=== PATIENT | male | born 1990 | race Caucasian/White ===

== ENCOUNTER 2016-10-14 11:57 | Observation (INO) | payer OTHER ==
[2016-10-14] MEDS ORDERED: ONDANSETRON 4 MG/2 ML VIAL IVP ONE (12:05)
[2016-10-14] MEDS ORDERED: fentaNYL 100 MCG/2 ML INJ IVP ONE (12:06)
--- NOTE | 2016-10-14 12:11 | EDPHY ---
H & P Time Seen by Provider: 10/14/16 12:06 HPI/ROS: CHIEF COMPLAINT: 60 foot fall, loss of consciousness HISTORY OF PRESENT ILLNESS: 26-year-old male presents after a 60 foot fall with loss of consciousness. He was a helmeted climber using a rope when he fell. He tumbled down approximately 45 feed of the rock face and then had a 15 feet free fall. His rope caught him and he did not fall to the ground. On bystander arrival, he was unconscious. On EMT arrival, GCS 14, confused and perseverating. He does not remember what happened and does not really hurt anywhere. He has multiple abrasions, denies headache or neck pain. He is able to move all extremities well. REVIEW OF SYSTEMS: Constitutional: No weakness Eyes: No visual changes or eye pain ENT: No dental trauma Neck:No pain or injury Respiratory: No shortness of breath Cardiac: No chest pain Gastrointestinal: No abdominal pain, no vomiting Back:no back pain Genitourinary: No hematuria Musculoskeletal: No joint pain Skin: No lacerations Neurological: No headache, no dizziness Past Medical/Surgical History: Denies Social History: No recent alcohol Smoking Status: Never smoked Physical Exam: General Appearance: Alert, cooperative and pleasant Head: forehead abrasion, 2 cm left scalp laceration Eyes: No conjunctival erythema, PERRLA, EOMI ENT, Mouth: no oral trauma, no bony tenderness Neck: In cervical spine collar Respiratory: No chest wall tenderness anteriorly, lungs clear bilaterally Cardiovascular: Regular rate and rhythm Abdomen: Abdomen is soft and nontender Back: Multiple abrasions over the entire back, midline tenderness of the thoracic back Skin: multiple abrasions, especially on the left upper and left lower extremities Extremities: Pelvis is stable, left pelvic tenderness; no extremity deformity, pain with left hip range of motion Neurological: alert, oriented to self and date, normal motor function, normal sensory exam, cranial nerves intact Psychiatric: Mood and affect normal Constitutional: Initial Vital Signs Temperature (C) 37.3 C 10/14/16 14:52 Heart Rate 74 10/14/16 14:52 Respiratory Rate 12 10/14/16 14:52 Blood Pressure 106/58 L 10/14/16 14:52 O2 Sat (%) 93 10/14/16 14:52 Allergies/Adverse Reactions: No Known Drug Allergies Allergy (Verified 10/14/16 12:57) Home Medications: Medication Instructions Recorded NK [No Known Home Meds] 10/14/16 Medical Decision Making - Diagnostics Imaging Results: Imaging Impressions Cervical Spine CT 10/14/16 12:06 Impression: Negative noncontrast CT of the head negative for intracranial posttraumatic sequela. CT Cervical Spine Without Contrast History: Trauma. Technique: Multislice helical CT through the cervical spine without contrast from the skull base to T1. Soft tissue and bone evaluation is performed. Sagittal and coronal reconstructions are obtained and reviewed. Dose reduction techniques were utilized. Findings: Cervical alignment is anatomic. There is a compression fracture of C7 anteriorly with approximately 20-30% loss of cephalocaudal height. There is no significant retropulsion or significant canal impingement. There is also a transverse process fracture of C7 on the left and a linear fracture extends into the left vertebral artery foramen. Additionally, there is a fracture involving the C6-C7 facet on the left side and there is an essentially undisplaced laminar fracture through the left posterior lamina of C6. There is mild prevertebral soft tissue swelling. Impression: Compression fracture of T7 with associated transverse process fracture of C7 with a linear component extending into the left vertebral artery foramen. A fracture also is seen involving the left C6-C7 facet articulation and there is a fracture of the posterior lamina of C6 on the left side which is undisplaced. Results called and discussed with Dr. Concepción Wray on 10/14/2016 at [address] 10/14/16 12:06 Impression: Negative noncontrast CT of the head negative for intracranial posttraumatic sequela. CT Cervical Spine Without Contrast History: Trauma. Technique: Multislice helical CT through the cervical spine without contrast from the skull base to T1. Soft tissue and bone evaluation is performed. Sagittal and coronal reconstructions are obtained and reviewed. Dose reduction techniques were utilized. Findings: Cervical alignment is anatomic. There is a compression fracture of C7 anteriorly with approximately 20-30% loss of cephalocaudal height. There is no significant retropulsion or significant canal impingement. There is also a transverse process fracture of C7 on the left and a linear fracture extends into the left vertebral artery foramen. Additionally, there is a fracture involving the C6-C7 facet on the left side and there is an essentially undisplaced laminar fracture through the left posterior lamina of C6. There is mild prevertebral soft tissue swelling. Impression: Compression fracture of T7 with associated transverse process fracture of C7 with a linear component extending into the left vertebral artery foramen. A fracture also is seen involving the left C6-C7 facet articulation and there is a fracture of the posterior lamina of C6 on the left side which is undisplaced. Results called and discussed with Dr. Concepción Wray on 10/14/2016 at [address] 10/14/16 12:07 Impression: 1. Negative for soft tissue posttraumatic change. 2. Pelvic fractures of the left iliac wing, right sacral alar and posterior lip of the right acetabulum CT lumbar Spine Reason for examination: Trauma. Technique: A thinly collimated spiral acquisition was performed through the lumbar spine. Sagittal and coronal reformations are performed and the examination is reviewed by the radiologist on the workstation at multiple window /level settings. Dose reduction techniques were utilized. Findings: The bone alignment is normal. An acute fracture is not seen. The paravertebral soft tissues are normal. Impression: Lumbar spine negative for fracture. Results called and discussed with CONCEPCIÓN WRAY on 10/14/2016 13:[address] 10/14/16 12:07 Impression: Left-sided pulmonary contusion with no associated pneumothorax. CT Thoracic Spine Without Contrast Reason for examination: Trauma. Technique: A thinly collimated spiral acquisition was performed through the thoracic spine. Sagittal and coronal reformations are performed and the examination is reviewed by the radiologist on the workstation at multiple window /level settings. Dose reduction techniques were utilized. Findings: The bone alignment is normal. The vertebral body heights are normal with no thoracic spine vertebral compression fracture identified. Notation is made of the compression fracture of T7. There are avulsion fractures of multiple thoracic spinous processes extending from T3 to T10. Impression: Negative for thoracic spine vertebral body fracture. Avulsion fractures of the spinous processes are seen from T3 to T10. Results called and discussed with CONCEPCIÓN WRAY on 10/14/2016 at 13:[address] 10/14/16 12:07 Impression: 1. Negative for soft tissue posttraumatic change. 2. Pelvic fractures of the left iliac wing, right sacral alar and posterior lip of the right acetabulum CT lumbar Spine Reason for examination: Trauma. Technique: A thinly collimated spiral acquisition was performed through the lumbar spine. Sagittal and coronal reformations are performed and the examination is reviewed by the radiologist on the workstation at multiple window /level settings. Dose reduction techniques were utilized. Findings: The bone alignment is normal. An acute fracture is not seen. The paravertebral soft tissues are normal. Impression: Lumbar spine negative for fracture. Results called and discussed with CONCEPCIÓN WRAY on 10/14/2016 13:[address] 10/14/16 12:07 Impression: Left-sided pulmonary contusion with no associated pneumothorax. CT Thoracic Spine Without Contrast Reason for examination: Trauma. Technique: A thinly collimated spiral acquisition was performed through the thoracic spine. Sagittal and coronal reformations are performed and the examination is reviewed by the radiologist on the workstation at multiple window /level settings. Dose reduction techniques were utilized. Findings: The bone alignment is normal. The vertebral body heights are normal with no thoracic spine vertebral compression fracture identified. Notation is made of the compression fracture of T7. There are avulsion fractures of multiple thoracic spinous processes extending from T3 to T10. Impression: Negative for thoracic spine vertebral body fracture. Avulsion fractures of the spinous processes are seen from T3 to T10. Results called and discussed with CONCEPCIÓN WRAY on 10/14/2016 at 13:11 Procedures: Procedure: Trauma ultrasound. Limited echocardiogram for pericardial effusion. Limited bedside ultrasound was performed and interpreted by myself for the indication of: chest trauma utilizing the thoracoabdominal emergency ultrasound protocol. Limited transthoracic echocardiogram: The pericardium was visualized and found to be negative for pericardial fluid. The study was negative for pericardial effusion. Limited abdominal ultrasound for blunt abdominal trauma. 1) The right upper quadrant was visualized and was found to be negative for intraperitoneal fluid. 2) The left upper quadrant was visualized and found to be negative for intraperitoneal fluid. The study was felt to be negative for free intraperitoneal fluid. Limited pelvic ultrasound was conducted for abdominal trauma. The bladder was visualized and did not reveal an anechoic area outside of the adjacent urinary bladder. Bladder was distended with urine. Procedure: Laceration repair. The 2 cm laceration on the scalp was anesthetized using lidocaine with epinephrine. The wound was irrigated, draped and explored to its base with a gloved finger. There were no deep structures involved. No foreign body palpable. The wound was repaired with maximo. The wound repair was simple. ED Course/Re-evaluation: This patient presented as a full trauma activation. Dr. Simon and Andres were present on the patient's arrival. Airway is intact and breath sounds are equal bilaterally. Initial vital signs or normal, without hypotension or tachycardia. Fast exam by me was normal. Patient was taken to CT scan, accompanied by the ED RN and Dr. Simon. CT scans reveal multiple spinal and pelvic fractures, without evidence of hemorrhage. Serial neuro exams unchanged. 1pm: Dr. Rasheed consulted by me. Dr. Ho consulted by Dr. Simon. 120pm: pt now c/o increasing upper back pain. CT results d/w pt. Porter J cervical collar placed. 150pm: The pt was logrolled for laceration repair. Scalp laceration stapled by me. Repeat neuro exam unchanged. Abdomen is soft and nontender. Differential Diagnosis: Differential diagnosis includes though it is not limited to fracture, intracranial hemorrhage, pneumothorax, hemothorax, intra-abdominal hemorrhage. - Data Points Laboratory Results: Laboratory Results 10/14/16 12:40 10/14/16 12:40 10/14/16 10/14/16 10/14/16 12:40 12:40 12:40 WBC 12.11 10^3/uL H 10^3/uL (3.80-9.50) RBC 4.31 10^6/uL L 10^6/uL (4.40-6.38) Hgb 13.9 g/dL g/dL (13.7-17.5) Hct 39.2 % L % (40.0-51.0) MCV 91.0 fL fL (81.5-99.8) MCH 32.3 pg pg (27.9-34.1) MCHC 35.5 g/dL g/dL (32.4-36.7) RDW 12.7 % % (11.5-15.2) Plt Count 203 10^3/uL 10^3/uL (150-400) MPV 10.6 fL fL (8.7-11.7) Neut % (Auto) 80.1 % H % (39.3-74.2) Lymph % (Auto) 10.9 % L % (15.0-45.0) [place] % (Auto) 7.3 % % (4.5-13.0) Eos % (Auto) 0.3 % L % (0.6-7.6) Baso % (Auto) 0.4 % % (0.3-1.7) Nucleat RBC Rel Count 0.0 % % (0.0-0.2) Absolute Neuts (auto) 9.70 10^3/uL H 10^3/uL (1.70-6.50) Absolute Lymphs (auto) 1.32 10^3/uL 10^3/uL (1.00-3.00) Absolute Monos (auto) 0.88 10^3/uL H 10^3/uL (0.30-0.80) Absolute Eos (auto) 0.04 10^3/uL 10^3/uL (0.03-0.40) Absolute Basos (auto) 0.05 10^3/uL 10^3/uL (0.02-0.10) Absolute Nucleated RBC 0.00 10^3/uL 10^3/uL (0-0.01) Immature Gran % 1.0 % % (0.0-1.1) Immature Gran # 0.12 10^3/uL H 10^3/uL (0.00-0.10) Sodium 139 mEq/L mEq/L (134-144) Potassium 4.0 mEq/L mEq/L (3.5-5.2) Chloride 107 mEq/L mEq/L (97-110) Carbon Dioxide 20 mEq/l L mEq/l (22-31) Anion Gap 12 mEq/L mEq/L (8-16) BUN 19 mg/dL mg/dL (7-23) Creatinine 1.0 mg/dL mg/dL (0.7-1.3) Estimated GFR > 60 Glucose 105 mg/dL H mg/dL (70-100) Calcium 8.7 mg/dL mg/dL (8.5-10.4) Patient ABO/Rh A POSITIVE Antibody Screen NEGATIVE Medications Given: Discontinued Medications Diphtheria/Tetanus/Acell Pertussis (Boostrix) 0.5 ml IM .ONCE ONE Stop: 10/14/16 12:57 Last Admin: 10/14/16 14:18 Dose: 0.5 ml Fentanyl (Sublimaze) 50 mcg IVP EDNOW ONE Stop: 10/14/16 12:07 Last Admin: 10/14/16 12:06 Dose: 50 mcg Cefazolin Sodium/Dextrose (Ancef 2 Gm (Premix)) 100 mls @ 200 mls/hr IV EDNOW ONE PRN Reason: Protocol Stop: 10/14/16 13:40 Last Admin: 10/14/16 13:45 Dose: 100 mls Ondansetron HCl (Zofran) 4 mg IVP EDNOW ONE Stop: 10/14/16 12:06 Last Admin: 10/14/16 12:05 Dose: 4 mg Pantoprazole Sodium (Protonix) 40 mg IVP EDNOW ONE Stop: 10/14/16 12:57 Last Admin: 10/14/16 12:56 Dose: 40 mg Departure - Departure Disposition: [facility] Inpatient Acute Clinical Impression: Multiple fractures of thoracic spine Qualifiers: Encounter type: initial encounter Fracture type: closed Qualified Code(s): S22.009A - Unspecified fracture of unspecified thoracic vertebra, initial encounter for closed fracture Compression fracture of cervical spine Qualifiers: Encounter type: initial encounter Qualified Code(s): M48.52XA - Collapsed vertebra, not elsewhere classified, cervical region, initial encounter for fracture Pulmonary contusion Qualifiers: Encounter type: initial encounter Laterality: left Qualified Code(s): S27.321A - Contusion of lung, unilateral, initial encounter Pelvic fracture Qualifiers: Encounter type: initial encounter Pelvic bone location: multiple parts Fracture type: closed Fracture alignment: without disruption of pelvic ring Qualified Code(s): S32.82XA - Multiple fractures of pelvis without disruption of pelvic ring, initial encounter for closed fracture Condition: Fair
[2016-10-14] MEDS ORDERED: fentaNYL 100 MCG/2 ML INJ ONE (12:25)
[2016-10-14] MEDS ORDERED: ONDANSETRON 4 MG/2 ML VIAL ONE (12:25)
[2016-10-14] MEDS ORDERED: LET GEL TOPICAL 1 EA SYR TP ONE (12:44)
[2016-10-14 12:51] LABS: ABSOLUTE IMMATURE GRANULOCYTES 0.12 10^3/uL (0.00-0.10); ADD DIFF? NO; ADD MORPH? NO; ADD SCAN? NO; ATYPICAL LYMPHOCYTE FLAG 0 (0-99); FRAGMENT RBC FLAG 0 (0-99); HEMATOCRIT 39.2 % (40.0-51.0); HEMOGLOBIN 13.9 g/dL (13.7-17.5); LEFT SHIFT FLG 0 (0-99); LIPEMIA HEMOLYSIS FLAG 90 (0-99); MEAN CELL HEMOGLOBIN 32.3 pg (27.9-34.1); MEAN CELL HEMOGLOBIN CONCENTR. 35.5 g/dL (32.4-36.7); MEAN PLATELET VOLUME 10.6 fL (8.7-11.7); PLATELET CLUMPS FLAG 10 (0-99); PLATELET COUNT 203 10^3/uL (150-400); RED BLOOD CELL COUNT 4.31 10^6/uL (4.40-6.38); RED CELL DISTRIBUTION WIDTH 12.7 % (11.5-15.2)
[2016-10-14] MEDS ORDERED: TDAP ADULT 0.5 ML INJ (BOOSTRIX) IM ONE (12:56)
[2016-10-14] MEDS ORDERED: PANTOPRAZOLE SODIUM 40 MG VIAL IVP ONE (12:56)
[2016-10-14] MEDS ORDERED: ceFAZolin 2 GM/DEXTROSE 100 ML IV ONE (13:11)
[2016-10-14 13:34] LABS: ANION GAP 12 mEq/L (8-16); CALCIUM 8.7 mg/dL (8.5-10.4); CARBON DIOXIDE 20 mEq/l (22-31); CHLORIDE 107 mEq/L (97-110); GLOMERULAR FILTRATION RATE > 60; GLUCOSE 105 mg/dL (70-100); SODIUM 139 mEq/L (134-144)
[2016-10-14] MEDS ORDERED: CYCLOBENZAPRINE 10 MG TAB PO PRN (13:58)
[2016-10-14] MEDS ORDERED: HYDROmorphONE/DILAUDID 1 MG/ML SYR IVP PRN (13:58)
[2016-10-14] MEDS ORDERED: ONDANSETRON 4 MG/2 ML VIAL IVP PRN (13:58)
[2016-10-14] MEDS ORDERED: LR 1,000 ML IV SCH (14:00)
[2016-10-14] MEDS ORDERED: ACETAMINOPHEN 325 MG TAB PO SCH (14:00)
[2016-10-14] MEDS: BACITRACIN ZINC 14.2 GM OINTTUBE TP SCH ×2 (14:00→20:19)
--- NOTE | 2016-10-14 14:43 | GCON ---
[f rep st] CONSULTATION DATE OF CONSULTATION: 10/14/2016 CONSULTING SERVICE: Emergency and Trauma Medicine, Dr. Limon and Dr. Simon. REASON FOR CONSULT: Multiple cervical and thoracic spinal fractures. HISTORY OF PRESENT ILLNESS: The patient is a 26-year-old gentleman, who presents to the [facility] room as a trauma activation after a 60-foot fall while climbing with positive LOC. He was a helmeted climber, using a rope when he fell. He tumbled down approximately 45 feet on the rock face and then had a 15-foot free fall landing on a hard surface as well. When bystanders arrived, he wa s unconscious. When EMT arrived, he had a GCS of 14, was confused and perseverating, but awake and alert. He is able to provide his own history in the emergency room, but he is amnestic to the event . He is endorsing some lower cervical pain and some left hip pain. So far, injuries include a scal p laceration, multiple soft tissue abrasions, pulmonary contusion, left sacral and acetabular and pe lvic fractures of the iliac crest, C7 anterior avulsion fracture with a C7 superior articular facet fracture, C7 left transverse process fracture, a left C6 laminar fracture, and avulsion fractures of the thoracic spinous processes from levels 3 to 10. The patient is not complaining of any numbness , tingling, weakness of any extremity. He is in a hard collar. PAST MEDICAL/SURGICAL HISTORY: Otherwise the patient denies. ALLERGIES: No known drug allergies. MEDICATIONS: No home medications. SOCIAL HISTORY: Denies recent alcohol, tobacco, or drug abuse. FAMILY HISTORY: This is a trauma, so noncontributory. No history of spinal fracture in his family. REVIEW OF SYSTEMS: Ten points were reviewed and are negative, other than mentioned in HPI. VITALS: All vital signs are stable on monitor during my interview. There are no recorded vitals as of yet in the chart. LABS: White blood cells 12, hemoglobin 13.9, platelets 203. Sodium 139, potassium 4, BUN and creat inine 19 and 1, and glucose 105. Blood type A positive. EXAM: EYES: Closed. Opens easily to voice. GENERAL: Oriented x3. No acute distress. Mild disc omfort. Multiple abrasions on his hands, knuckles, arms, shoulders. He is in a collar that seems t o fit well. NEUROLOGICAL: He is grossly nonfocal with normal strength with the limitations of his left acetabular fracture. He has trouble with hip flexion on the left. He has no abnormal reflexes . He has normal sensation. Gait is deferred, but he has no cerebellar findings. IMAGING: I reviewed the patient's head CT and did not see anything acute intracranially. He has no skull fractures. I reviewed the patient's CT of the C-spine. He does have a nondisplaced left roger inar fracture, a left small nondisplaced fracture of the superior articulating facet of C7, and a le ft nondisplaced C7 transverse process fracture. He does have what appears to be an anterior avulsio n fracture of the anterior inferior endplate of C7. Overall, he has maintained good cervical alignm ent. He has avulsion spinous process fractures of the T3-T10 spinous processes. Again, his overall spinal alignment seems normal in the cervical, thoracic, and lumbar spines. The fracture at the sa loren is minor as well. IMPRESSION AND PLAN: The patient is a 26-year-old male, who had a significant climbing incident ear lier today and has multiple injuries. From a cervical spine standpoint, he has a C7 anterior inferi or avulsion fracture with an associated left superior articular facet fracture and left C7 transvers e process fracture and nondisplaced C6 laminar fracture. He also has T3-T10 avulsion fractures of t he spinous processes. Overall, he has maintained normal spinal alignment throughout, and he has a n ormal neurologic exam without other neurologic symptoms other than pain in his injured areas. At th is point in time, I am hopeful this will heal in a cervical orthosis. I would recommend an MRI of t he C-spine when able, and I would recommend use of a well-fitting cervical collar at all times aroun d-the-clock, at which point in time, if the patient is able to start getting up and mobilizing, will need to obtain some upright AP and lateral cervical plain films to ensure that he does not have con cerning listhesis or compression down on a C7 fracture. At this point in time, we are following awilda stevenson. Thank you for this consult. /[id number]/MODL
--- NOTE | 2016-10-14 15:28 | GDS ---
[f rep st] History and Physical ADMITTING DIAGNOSIS: Fall from height with cervical, thoracic and pelvic fractures. HISTORY: The patient is a 26-year-old, [place] national, who was climbing in [facility]. The pitch he was on was not vertical, but angled slightly into the mountain. He apparently fell from 60 feet and has no recollection of the fall. According to witnesses he bounced, hitting at different areas several times during the course of the fall. He safety rope knot caught him just before he hit the ground, so he did not hit the ground directly. He was then taken down. At the scene, he was not felt to be responsive but by the time the first responders arrived in 20 minutes, his GCS was 14. It was 15 on arrival at [facility]. On arrival his airway was clear, his breathing was uncompromised, and though he had multiple abrasions there was no obvious ongoing bleeding. A focused history reveals he is not a smoker. He drinks approximately 1 beer a week. ALLERGIES: He has no medication allergies. MEDICATIONS: Not taking medications. He is known to have mitral valve regurgitation. His last meal was breakfast, and he had, he believes coffee, cheese and eggs. PHYSICAL EXAMINATION: He is carefully exposed and examined head-to-toe. A cervical collar is in place. Dr. Limon took care of the head and neck evaluation. Note, there were no raccoon eyes. No Townsend sign. Tympanic membranes were clear. He had normal dental occlusion. Pupils were 3 mm and reactive. Extraocular movements intact. He was oriented to person, place, and time. GCS was 15. He moved all extremities without evidence of focal lateralizing findings. Cervical collar was left in position. There is a left occipital stellate laceration. CHEST: Stable to AP and lateral compression. LUNGS: Clear to auscultation. CARDIAC: He is known to have mitral valve regurgitation. I did not appreciate a murmur at this time. His clavicles are palpably normal. EXTREMITIES: The right upper extremity is unremarkable. Left upper extremity has abrasions in the left upper arm and left forearm. ABDOMEN: Soft, nontender, with normoactive bowel sounds. He is slightly tender over his left iliac crest and there is an abrasion. He is not tender over the pubic bone. Lower extremity shows an abrasion over his left patella. He has full range of motion of both lower extremities. Fast examination is negative. VITAL SIGNS: Initial blood pressure was 118/60, heart rate was 60. Room air saturations were 98%. Temperature was 36.2. He was now transported to [facility], where a CT scan of his head, neck, chest, abdomen, and pelvis was carried out. As he was transferred onto the CT table, he had been rolled. There are abrasions across his mid back and his left shoulder, more on the left than on the right. He has abrasions over his left hip as well. The CT of his head is negative. CT of his neck shows a C6 facet fracture, a C6 posterior ring fracture, a C7 compression fracture, and a fracture of the C7 vertebral foramen. There is a CT of his chest, which shows a minimal left pulmonary contusion. There is an T3 through 9 posterior spinous process fractures. His abdomen is unremarkable. He does have a left inferior and posterior acetabular lip fracture. He has a right sacral alar fracture. His left iliac crest fracture (2 sites). Consultations have been requested from Dr. Ho of orthopedics, and Dr. Rasheed of Neurosurgery. All abrasions are carefully cleaned. The laceration in the left occipital region is being repaired at this time. He has received tetanus, Ancef, Protonix , Zofran, fentanyl. He will be admitted to med/surg. He has been placed in a [place] J collar. /[id number]/MODL MTDD
[2016-10-14] MEDS: ACETAMINOPHEN 500 MG TAB PO SCH ×2 (15:33→20:20)
--- NOTE | 2016-10-14 20:04 | GCON ---
[f rep st] CONSULTATION REASON FOR CONSULTATION: Pelvic injury. HISTORY OF PRESENT ILLNESS: The patient is a 26-year-old who sustained a fall while climbing. Of h is complaints, he was noted to have pain in his pelvic region. He denies any previous problems rela tive to his pelvis. PHYSICAL EXAMINATION: On examination, his leg lengths and rotation are symmetric. He has some mild tenderness along the left iliac wing. Gentle compression across his pelvis does not produce any pa in or laxity. Gentle translational stresses through each hemipelvis does not produce any significan t pain. His general right hip range of motion as well as left hip range of motion does not produce any instability or significant pain within the hip joints. His distal neurovascular exam is grossly intact. IMAGING: AP pelvis shows evidence of a stable pelvic ring. There is evidence of a minimally displa camila left iliac wing fracture. CT scan shows evidence of a posterior wall acetabular fracture encompassing approximately 15% of the overall acetabular socket. There is a small amount nondisplaced sacral ala fracture. There is no evidence of widening of the pelvic girdle. ASSESSMENT: 1. Stable pelvic fracture. 2. Posterior wall acetabular fracture. PLAN: Based on the stable nature of his pelvic fracture, nonoperative treatment is recommended. Th e acetabular fracture encompassing a small area of the posterior wall will likely heal uneventfully and provide a stable hip socket without any problems. Nonoperative management of this was kalee silvestre recommended. He will be weightbearing as tolerated on his left lower extremity and approximatel y 30-pound weightbearing on his right lower extremity. /[id number]/MODL
[2016-10-14] MEDS: KETOROLAC 30 MG/1 ML SDV IVP PRN (20:20)
[2016-10-15] MEDS: ACETAMINOPHEN 500 MG TAB PO SCH ×3 (04:57→20:47)
[2016-10-15] MEDS: KETOROLAC 30 MG/1 ML SDV IVP PRN ×2 (04:57→12:59)
[2016-10-15 05:13] LABS: COLOR YELLOW; LEUKOCYTE ESTERASE,URINE NEGATIVE (NEGATIVE); NITRITE,URINE NEGATIVE (NEGATIVE)
[2016-10-15 05:17] LABS: MUCUS TRACE /lpf (NONE-1+)
[2016-10-15 05:22] LABS: % IMMATURE GRANULYOCYTES 0.1 % (0.0-1.1); ABSOLUTE IMMATURE GRANULOCYTES 0.01 10^3/uL (0.00-0.10); ADD DIFF? NO; ADD MORPH? NO; ADD SCAN? NO; ATYPICAL LYMPHOCYTE FLAG 0 (0-99); FRAGMENT RBC FLAG 0 (0-99); HEMATOCRIT 35.6 % (40.0-51.0); HEMOGLOBIN 12.7 g/dL (13.7-17.5); LEFT SHIFT FLG 0 (0-99); LIPEMIA HEMOLYSIS FLAG 90 (0-99); MEAN CELL HEMOGLOBIN CONCENTR. 35.7 g/dL (32.4-36.7); MEAN CELL VOLUME 89.7 fL (81.5-99.8); MEAN PLATELET VOLUME 10.4 fL (8.7-11.7); PLATELET CLUMPS FLAG 0 (0-99); PLATELET COUNT 161 10^3/uL (150-400); RED BLOOD CELL COUNT 3.97 10^6/uL (4.40-6.38); RED CELL DISTRIBUTION WIDTH 12.6 % (11.5-15.2)
[2016-10-15 05:35] LABS: ANION GAP 8 mEq/L (8-16); CALCIUM 8.5 mg/dL (8.5-10.4); CARBON DIOXIDE 21 mEq/l (22-31); CHLORIDE 109 mEq/L (97-110); CREATININE 0.9 mg/dL (0.7-1.3); GLOMERULAR FILTRATION RATE > 60; GLUCOSE 106 mg/dL (70-100); POTASSIUM 4.1 mEq/L (3.5-5.2); SODIUM 138 mEq/L (134-144)
[2016-10-15] MEDS: BACITRACIN ZINC 14.2 GM OINTTUBE TP SCH ×3 (12:47→20:47)
--- NOTE | 2016-10-15 12:52 | SOAPPROG ---
SOAP Progress Note Assessment/Plan: Assessment: 26 yo M with C7 vertebral body fx, C6 lamina fracture, T3-10 spinous process fractures after fall Plan: neuro: stable and doing well overall hard collar at all times supine CT shows good alingment of frature continue PT/OT please call with neuro changes discussed with Dr Rasheed 10/15/16 12:49 Subjective: some neck pain, no arm pain, no weakness. Objective: Vital Signs Temp Pulse Resp BP Pulse Ox 36.9 C 76 14 126/69 H 96 10/15/16 11:20 10/15/16 11:20 10/15/16 11:20 10/15/16 11:20 10/15/16 11:20 Laboratory Results 10/15/16 04:54 10/15/16 04:54 10/14/16 10/15/16 10/16/16 05:59 05:59 05:59 Intake Total 2700 Output Total 440 Balance 2260 AAOx4, +FC PERRL, EOMI, no facial droop 5/5 + light touch [place] J collar in place ICD10 Worksheet Patient Problems: Problems Problem Status Onset Compression fracture of cervical spine Acute Multiple fractures of thoracic spine Acute Pelvic fracture Acute Pulmonary contusion Acute
[2016-10-15] MEDS ORDERED: HYDROmorphONE/DILAUDID 2 MG TAB PO PRN (15:26)
--- NOTE | 2016-10-15 15:40 | TRAUMAPN ---
- Problem/Surgery Performed (1) Pulmonary contusion Assessment/Plan: 10/15/2016 PAD#1 Assessment: Lungs clear without E to A changes. Plan: Will get FU PA and LAT CXR in AM Qualifiers: Encounter type: subsequent encounter Laterality: left Qualified Code(s): S27.321D - Contusion of lung, unilateral, subsequent encounter (2) Multiple fractures of thoracic spine Assessment/Plan: 10/15/2016 Assessment: Fx of spinous process T3-T10. Stable fracture. Not currently bothering him Plan: Assure adequate pain control as mobilization increases. Qualifiers: Encounter type: initial encounter Fracture type: closed Fracture healing : F Qualified Code(s): S22.009A - Unspecified fracture of unspecified thoracic vertebra, initial encounter for closed fracture (3) Compression fracture of cervical spine Assessment/Plan: 10/15/2016 Assessment: Per Neuro surgery. Plan: Hard cervical collar Qualifiers: Encounter type: subsequent encounter Fracture healing: F Qualified Code(s ): M48.52XA - Collapsed vertebra, not elsewhere classified, cervical region, initial encounter for fracture (4) Pelvic fracture Assessment/Plan: 10/15/2016 Assessment: Fx left iliac crest ( 2 sites), right sacral ala fracture, right posterior/ inferior acetabular lip fracture. Dr. Ho's input appreciated Plan: Allow ambulation Qualifiers: Encounter type: subsequent encounter Pelvic bone location: multiple parts Sublocation of acetabulum: S Sublocation of pubis: S Fracture type: closed Fracture morphology: F Fracture alignment: without disruption of pelvic ring Laterality: L Fracture healing: F Qualified Code(s): S32.82XA - Multiple fractures of pelvis without disruption of pelvic ring, initial encounter for closed fracture Assessment/Plan: PAD#1 Tertiary survey completed without new findings Subjective: Pain is good is it not? Objective: Vital Signs Temp Pulse Resp BP Pulse Ox 36.9 C 76 14 126/69 H 96 10/15/16 11:20 10/15/16 11:20 10/15/16 11:20 10/15/16 11:20 10/15/16 11:20 Laboratory Results 10/15/16 04:54 10/15/16 04:54 10/14/16 10/15/16 10/16/16 05:59 05:59 05:59 Intake Total 2700 Output Total 440 Balance 2260 - C-Spine Clearance Cervical Spine Cleared: No Physical Exam - Physical Exam General Appearance: WD/WN, alert, mild distress Neck: other (In hard collar) Respiratory: chest non-tender, lungs clear, normal breath sounds, other ( abrasions healing) Cardiac/Chest: normal peripheral pulses, regular rate, rhythm, other (MVP murmur not appreciated) Abdomen: normal bowel sounds, non-tender, soft Male Genitalia: deferred Rectal: deferred Back: Normal inspection Skin: other (multiple abrasions in various levels of healing) Neuro/Psych: no motor/sensory deficits, alert, normal mood/affect, oriented x 3 Time Spent w/Patient (minutes): 25
[2016-10-15] MEDS: POLYETHYLENE GLYCOL 3350 17 GM PKT PO SCH (20:47)
[2016-10-16] MEDS: ACETAMINOPHEN 500 MG TAB PO SCH ×3 (05:21→20:56)
--- NOTE | 2016-10-16 08:40 | NEUSURGPN ---
Assessment/Plan: Assessment: 26 yo M with C7 vertebral body fx, C6 lamina fracture, T3-10 spinous process fractures after fall Plan: neuro: stable with some posterior neck pain hard collar at all times supine CT shows good alignment of fracture, Xrays in brace with no retropulsion of C7 noted. Cervical MRI pending continue PT/OT please call with neuro changes discussed with Dr Rasheed Subjective: posterior neck pain-> worse with transitions. Denies nay new weakness. States collar is fitting well in both sitting and standing. Objective: NAD A&Ox3 MAEx4 5/5 and equal in BUE and BLE - Physician Discussed Patient with : [facility] Physical Exam - Vitals, I&O, Labs I and O 10/15/16 10/16/16 10/17/16 05:59 05:59 05:59 Intake Total 2700 Output Total 440 700 Balance 2260 -700 Weight 68.039 kg Intake: Oral (ml) 300 IV Intake (ml) 500 IV Infused (ml) 1900 Lr 1,000 ml @ 100 mls/hr 700 IV CONT JO-ANN Rx#: [id number] ceFAZolin 2 GM/DEXTROSE 100 100 ml @ 200 mls/hr IV EDNOW ONE Rx#:[id number] Output: Urine (ml) 440 700 Urinal 440 700 Other: Intake Quantity Yes Sufficient Number of Voids Urinal 1 1 Vital Signs Temp Pulse Resp BP Pulse Ox 36.7 C 82 16 117/71 99 10/16/16 07:19 10/16/16 08:27 10/16/16 08:27 10/16/16 07:19 10/16/16 08:27 Laboratory Results 10/15/16 04:54 10/15/16 04:54 ICD10 Worksheet Patient Problems: Problems Problem Status Onset Compression fracture of cervical spine Acute Multiple fractures of thoracic spine Acute Pelvic fracture Acute Pulmonary contusion Acute
[2016-10-16] MEDS: BACITRACIN ZINC 14.2 GM OINTTUBE TP SCH ×2 (08:43→20:56)
[2016-10-16] MEDS: POLYETHYLENE GLYCOL 3350 17 GM PKT PO SCH ×2 (08:44→20:56)
--- NOTE | 2016-10-16 12:28 | TRAUMAPN ---
- Problem/Surgery Performed (1) Pulmonary contusion Assessment/Plan: 10/15/2016 PAD#1 Assessment: Lungs clear without E to A changes. Plan: Will get FU PA and LAT CXR in AM 10/16/2016 PAD#2 Assessment: Lungs clear. CXR clear Plan: continue IS Qualifiers: Encounter type: subsequent encounter Laterality: left Qualified Code(s): S27.321D - Contusion of lung, unilateral, subsequent encounter (2) Multiple fractures of thoracic spine Assessment/Plan: 10/15/2016 Assessment: Fx of spinous process T3-T10. Stable fracture. Not currently bothering him Plan: Assure adequate pain control as mobilization increases. 10/16/2016 Assessment: Pain control adequate Plan: continue pain medication Qualifiers: Encounter type: initial encounter Fracture type: closed Fracture healing : F Qualified Code(s): S22.009A - Unspecified fracture of unspecified thoracic vertebra, initial encounter for closed fracture (3) Compression fracture of cervical spine Assessment/Plan: 10/15/2016 Assessment: Per Neuro surgery. Plan: Hard cervical collar 10/16/2016 Assessment: Per neurosurgery Plan: Continue hard collar Qualifiers: Encounter type: subsequent encounter Fracture healing: F Qualified Code(s ): M48.52XA - Collapsed vertebra, not elsewhere classified, cervical region, initial encounter for fracture (4) Pelvic fracture Assessment/Plan: 10/15/2016 Assessment: Fx left iliac crest ( 2 sites), right sacral ala fracture, right posterior/ inferior acetabular lip fracture. Dr. Ho's input appreciated Plan: Allow ambulation 10/16/2016 Assessment: tolerating ambulation Qualifiers: Encounter type: subsequent encounter Pelvic bone location: multiple parts Sublocation of acetabulum: S Sublocation of pubis: S Fracture type: closed Fracture morphology: F Fracture alignment: without disruption of pelvic ring Laterality: L Fracture healing: F Qualified Code(s): S32.82XA - Multiple fractures of pelvis without disruption of pelvic ring, initial encounter for closed fracture Assessment/Plan: PAD#1 Tertiary survey completed without new findings PAD#2 Set for discharge. Scalp staple removal later this week Subjective: Pain is tolerable Passing flatus Objective: Vital Signs Temp Pulse Resp BP Pulse Ox 37.0 C 81 14 124/76 H 96 10/16/16 11:59 10/16/16 11:59 10/16/16 11:59 10/16/16 11:59 10/16/16 11:59 Laboratory Results 10/15/16 04:54 10/15/16 04:54 10/15/16 10/16/16 10/17/16 05:59 05:59 05:59 Intake Total 2700 Output Total 440 700 Balance 2260 -700 - C-Spine Clearance Cervical Spine Cleared: No Physical Exam - Physical Exam General Appearance: WD/WN, alert, no apparent distress Neck: other (in hard collar) Respiratory: chest non-tender, lungs clear, normal breath sounds Cardiac/Chest: regular rate, rhythm Abdomen: normal bowel sounds, non-tender, soft Male Genitalia: deferred Rectal: deferred Back: Other (Abrasions/contusions healing, cell tender helper with transition laying to sitting) Skin: other (multiple abrasions - no evidence of infection) Extremities: normal range of motion, non-tender Neuro/Psych: no motor/sensory deficits, alert, normal mood/affect, oriented x 3 Time Spent w/Patient (minutes): 15
--- NOTE | 2016-10-16 13:53 | GDS ---
[f rep st] DISCHARGE SUMMARY DISCHARGE DIAGNOSES: 1. Fall from height with compression fracture of cervical spine. 2. Multiple fractures of the posterior spinous processes of the thoracic spine. 3. Pelvic fracture and pulmonary contusion. CONDITION ON DISCHARGE: Improved. DISPOSITION: Home. DIET: Unrestricted although I have recommend that he avoid constipating foods such as bananas, rice , applesauce, and cheese. Texture is normal. MEDICATIONS AT DISCHARGE: Include: 1. Tylenol 1000 mg every 8 hours. 2. Ibuprofen 200 mg every 6 hours. 3. Dilaudid 2 mg, 2 mg to 4 mg every 4 hours as needed for severe pain. 4. Flexeril 10 mg p.o. every 8 hours as needed for spasm. 5. MiraLAX 17 g twice a day. 6. Topical antibiotic (bacitracin ointment) twice a day on his multiple abrasions. ACTIVITIES AND RESTRICTIONS: He is to wear a hard collar except when showering. At that time, he i s to carefully change to a [place] collar and to avoid moving his neck side to side, raise his chin up or down. He is to shower and change back. FOLLOWUP: 1. He will follow up with Dr. Alphonse Peter after October 18 for staple removal from his scalp. 2. He will follow up with Dr. Sharif Ho in approximately 2 weeks for re-evaluation of his pelvi c fractures. 3. He will follow up with Dr. Guanako Rasheed in 6 weeks. He will get x-rays prior to that visit. HOSPITAL COURSE: The patient was admitted and evaluated. He has an oblique fracture of the anterio r aspect of the C7 vertebral body with extension to the C7 facet with minimal retrolisthesis of C7 r elative to T1. He has paraspinous and intraspinous ligament tears at C5 and C6. He has fractures of the spinous processes of T3 through T10. He has a left iliac crest fracture. H e has a right sacral ala fracture. He has a right posterior inferior acetabular rim fracture. He is weightbearing as tolerated. He does have a hard cervical collar. His pain is controlled at t his point, and he is set for discharge. /[id number]/MODL
[2016-10-17] MEDS: ACETAMINOPHEN 500 MG TAB PO SCH ×2 (06:16→12:31)
[2016-10-17 07:30] VITALS: BP 124/81; RESP 16; TEMP 98.1
--- NOTE | 2016-10-17 08:13 | NEUSURGPN ---
Assessment/Plan: Assessment: 26 yo M with C7 vertebral body fx, C6 lamina fracture, T3-10 spinous process fractures after fall Plan: neuro: stable with some posterior neck pain hard collar at all times supine CT shows good alignment of fracture, Xrays in brace with no retropulsion of C7 noted. Cervical MRI demonstartes C7 fracture again, with ligament tears a C5 and C6. Good anatomic alignment preserved. continue PT/OT please call with neuro changes Okay to dipo per neurosurgery and follow up in 6 weeks with xrays Discussed with patient reasons to notify our office including new numbness, tingling, pain or weakness discussed with Dr Rasheed Subjective: Denies any new numbness, tingling, pain or weakness. Objective: NAD A&Ox3 MAEx4 5/5 and equal in BUE and BLE. Sensation intact - Physician Discussed Patient with : [facility] Physical Exam - Vitals, I&O, Labs I and O 10/16/16 10/17/16 10/18/16 05:59 05:59 05:59 Intake Total 700 Output Total 700 Balance -700 700 Intake: Oral (ml) 700 Output: Urine (ml) 700 Urinal 700 Other: Intake Quantity Yes Yes Sufficient Number of Voids Toilet 1 Urinal 1 Vital Signs Temp Pulse Resp BP Pulse Ox 36.7 C 75 16 124/81 H 94 10/17/16 07:24 10/17/16 07:24 10/17/16 07:24 10/17/16 07:24 10/17/16 07:24 Laboratory Results 10/15/16 04:54 10/15/16 04:54 ICD10 Worksheet Patient Problems: Problems Problem Status Onset Compression fracture of cervical spine Acute Multiple fractures of thoracic spine Acute Pelvic fracture Acute Pulmonary contusion Acute
[2016-10-17] MEDS: BACITRACIN ZINC 14.2 GM OINTTUBE TP SCH (08:14)
[2016-10-17] MEDS: POLYETHYLENE GLYCOL 3350 17 GM PKT PO SCH (08:14)
[2016-10-17 08:34] VITALS: PULSE 78; O2SAT 95
--- NOTE | 2016-10-17 11:39 | PDIAF ---
- Diagnosis Diagnosis: cervical and thoracic spine fx's, pelvic fx, pulmonary contusion Code Status: Full Code - Medication Management Discharge Medications: Medications to Continue on Transfer Acetaminophen [Tylenol ES 500 mg (*)] 1,000 mg PO Q8 #90 tab 10/16/16 [Last Taken Unknown] Bacitracin Zinc [Bacitracin Ointment Tube] 1 ramez TP BID #2 oint 10/16/16 [Last Taken Unknown] Cyclobenzaprine [Flexeril 10 MG (*)] 10 mg PO TID PRN #40 tab 10/16/16 [Last Taken Unknown] HYDROmorphone HCL [Dilaudid 2 mg (*)] 2 - 4 mg PO Q4HRS PRN #30 tab 10/16/16 [ Last Taken Unknown] Ibuprofen [Motrin (*)] 200 mg PO Q6 #40 tab 10/16/16 [Last Taken Unknown] Polyethylene Glycol 3350 [Miralax 17 gm (*)] 17 gm PO BID #30 pkt 10/16/16 [ Last Taken Unknown] Discharge Medications: Refer to the Discharge Home Medication list for PRN reason. - Orders Services needed: Registered Nurse, Physical Therapy, Occupational Therapy Diet Recommendation: no restrictions on diet Diet Texture: Regular Texture Diet Activity/Weight Bearing Restrictions: Hard collar at all times except showering- -then may change into [place] collar to avoid moving his neck side to side , or to raise his chin up or down. Hard collar to be put back on immediately. Weight bearing as tolerated. - Follow Up Care Current Providers and Referrals: Sharif Ho MD [Medical Doctor] - follow up in 2 weeks (follow up for pelvic fracture (left iliac creast, right acetabular)) Guanako Rasheed MD [Medical Doctor] - (Follow up in 6 weeks. Call office for order for neck x-ray prior to visit.) Patient,NotPresent [Unknown] - As per Instructions Dakota Peter MD [Medical Doctor] - (scalp staple removal after 10/18)
--- NOTE | 2016-10-17 11:46 | TRAUMAPN ---
Assessment/Plan: 26 Y M fall from height. Multiple cervical and thoracic spine fractures in hard collar. Pelvic fracture, WBAT. Pulmonary contusion. Discharge to home per Dr. Simon arranged yesterday. Now has qualified for inpatient rehab. Will d/c to inpatient rehab today. Seen and examined with Dr. Peter. Chart and d/c plans, f/u, activity restrictions reviewed. S: no new complaints. O: alert, nad in hard collar no wob rrr abd soft ext warm Objective: Vital Signs Temp Pulse Resp BP Pulse Ox 36.7 C 78 16 124/81 H 95 10/17/16 07:24 10/17/16 08:26 10/17/16 08:26 10/17/16 07:24 10/17/16 08:26 Laboratory Results 10/15/16 04:54 10/15/16 04:54 10/16/16 10/17/16 10/18/16 05:59 05:59 05:59 Intake Total 700 Output Total 700 Balance -700 700 - C-Spine Clearance Cervical Spine Cleared: No
== END 2016-10-17 13:39 ==
LOC: INTOOBSV 13:12 → F3N 14:47
PROVIDERS: ADMIT Surgery; ATTEND Surgery
PROC: 0HQ0XZZ Repair Scalp Skin, External Approach (ICD-10-PCS; principal; 2016-10-14)
DX: S12.690A Other displaced fracture of seventh cervical vertebra, initial encounter for closed fracture (principal); S22.060A Wedge compression fracture of T7-T8 vertebra, initial encounter for closed fracture; S32.82XA Multiple fractures of pelvis without disruption of pelvic ring, initial encounter for closed fracture; S32.491A Other specified fracture of right acetabulum, initial encounter for closed fracture; S32.19XA Other fracture of sacrum, initial encounter for closed fracture; S27.329A Contusion of lung, unspecified, initial encounter; S01.01XA Laceration without foreign body of scalp, initial encounter; Z23 Encounter for immunization; W17.89XA Other fall from one level to another, initial encounter; Y93.31 Activity, mountain climbing, rock climbing and wall climbing; Y92.828 Other wilderness area as the place of occurrence of the external cause
CPT/HCPCS: 12001; 70450; 71020; 71260; 72040; 72125; 72129; 72132; 72141; 72170; 74177; 92507; 92523; 96374; 96375; 97116; 97162; 97166; 97530; 97535; 99285; G0378; J0690; J1170; J1885; J2405; J3010

== ENCOUNTER 2016-10-17 11:38 | Inpatient (IN) | payer OTHER ==
[2016-10-17] MEDS ORDERED: HYDROmorphONE/DILAUDID 2 MG TAB PO PRN (14:46)
[2016-10-17] MEDS ORDERED: POLYETHYLENE GLYCOL 3350 17 GM PKT PO PRN (14:46)
[2016-10-17] MEDS ORDERED: CYCLOBENZAPRINE 10 MG TAB PO PRN (14:46)
--- NOTE | 2016-10-17 16:07 | GHP ---
[f rep st] HISTORY AND PHYSICAL POST ADMISSION PHYSICIAN EVALUATION AND REHABILITATION TREATMENT PLAN DATE OF ADMISSION: 10/17/2016 DATE OF EVALUATION: October 17, 2016 TIME OF EVALUATION: 1415 REFERRING FACILITY: [facility]. REFERRING PHYSICIAN: Dr. Simon. IMPAIRMENT GROUP: 14.2. ETIOLOGIC DIAGNOSIS: Brain plus multiple fractures/amputations. DATE OF ONSET: 10/14/2016 CONSULTING PHYSICIANS: He was seen in consultation by Orthopedics, Dr. Ho and by Neurosurgery, Dr. Rasheed. REHABILITATION DIAGNOSIS: Multiple trauma following a rock-climbing fall. HISTORY OF PRESENT ILLNESS: This patient is a 26-year-old man who was admitted to [facility] on 10/14/2016, after a 60-foot fall while rock climbing. He was wearing a helmet. He had loss of consciousness and was confused and perseverative at the scene. His first memory is waking up in the hospital. He was found to have an oblique fracture of the anterior aspect of the C7 vertebral body with extension to the C7 facet. He had paraspinous and interspinous ligament tears at C5 through C8. He had spinous process fractures of T3 through T10. He had a left iliac crest fracture, a right sacral ala fracture, and a right posterior inferior acetabular fracture. He was seen by Neurosurgery and treated with a hard cervical collar. He was seen by Orthopedic Surgery and has weightbearing limited to 30 pounds on the right lower extremity. Pain control was achieved and he has not been using opiates for a day. He was stabilized and ready for inpatient rehabilitation. He was also found to have a pulmonary contusion of the left lung. Other studies and labs besides imaging: CBC showed mild anemia which worsened slightly. His hemoglobin was 13.9 and hematocrit 39.2 on admission; the next day, it was 12.7 and 35.6. He had an elevated white blood cell count of 12.11 on admission and this normalized the next day to 7.24. Serum chemistry was overall within normal limits but for a slightly low carbon dioxide at 20 and 21 on 10/14 and 10/15 respectively, and a slightly elevated glucose at 106 on 10/15. Urinalysis showed 1+ blood, and was otherwise within normal limits. PRECAUTIONS: He has the orthopedic precaution of a 30-pound weightbearing on the right lower extremity. ACTIVE COMORBIDITIES: He has no tier 1, tier 2, or tier 3 comorbidities. PAST MEDICAL HISTORY: Heart murmur for many years, which he reports is mitral valve prolapse. PAST SURGICAL HISTORY: He has no history of prior surgeries. PREHOSPITAL MEDICATIONS: He was on no medications. ADMISSION MEDICATIONS: 1. Acetaminophen 1000 mg p.o. q.8 hours. 2. Bacitracin zinc ointment to abrasions b.i.d. 3. Cyclobenzaprine 10 mg p.o. t.i.d. p.r.n. 4. Hydromorphone 2 mg to 4 mg p.o. q.4 hours p.r.n. 5. Ibuprofen 200 mg p.o. q.6 hours. 6. Polyethylene glycol 17 g p.o. b.i.d. ALLERGIES: There are no known drug allergies. FAMILY HISTORY: Noncontributory. PSYCHOSOCIAL HISTORY: He is originally from [facility] [place]. 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 He is a nonsmoker and nondrinker. He lives with a roommate. There is 1 step to enter the home. REVIEW OF SYSTEMS: He reports that he has some difficulty in moving the right leg back into bed and particularly, he has to be careful to not have momentum as this would cause pain. Overall, his pain is adequately controlled and he has not used opiate medications since yesterday afternoon. He denies headache; vision changes; difficulty swallowing; numbness, weakness or tingling of the extremities. He denies palpitations or chest pain. He denies cough or dyspnea. He denies nausea, vomiting, constipation, or diarrhea. He denies urinary frequency or dysuria. Other than his recent injuries, he denies joint pain or joint swelling. Other than abrasions, he denies skin rash and/or skin breakdown. He is in good spirits. He is sleeping well and he denies snoring. PHYSICAL EXAM: VITAL SIGNS: Blood pressure is 116/78, heart rate is 72, respiratory rate is 18, oxygen saturation is 98% on room air. Temperature is 36.7 degrees centigrade. His weight is 68 kg for a body mass index of 20.3. GENERAL: This is a well-nourished, well-developed man, appears his chronologic age, cooperative, and in no acute distress. HEENT: Extraocular movements are intact. Pupils are equal, round, and reactive to light. Mucous membranes are moist. Dentition is in good condition. NECK: Supple. HEART: There is a regular rate and rhythm with occasional extra beats. There is a 2/6 systolic murmur at the left sternal border. LUNGS: Clear to auscultation bilaterally. ABDOMEN: Soft, nontender, nondistended with normoactive bowel sounds and no hepatosplenomegaly. EXTREMITIES: There is no cyanosis, clubbing, or edema. Radial and dorsalis pedis pulses are 2+ bilaterally. NEUROLOGIC: He is alert and oriented x3, though he has to count backwards from 10/21/16, to calculate the current date of 10/17/16. He is correct with the date. Cranial nerves 2-12 are grossly intact. There is no focal weakness. Sensation is intact to light touch. SKIN: He has multiple abrasions. Abrasion on the left elbow and the right knee are dressed; they have eschar. There is no erythema and no purulence. Stapled incision L posterior scalp C/D/I. CURRENT LEVEL OF FUNCTION: Per the pre-admission screen: Regarding diet, feeding or swallowing, he was on a regular diet. He was independent with feeding and his swallow was normal. Regarding grooming, this was accomplished with standby assist and voice cues for technique, given that he has a cervical collar on. For toileting, he was independent with clothing management. He needed modified independence for transfers, using a front-wheeled walker and grab bars. Regarding bladder and bowel, he was continent. Regarding bed mobility, he required standby assist to contact guard assist to minimal assist with voice cues. He needed assistance for bilateral lower extremities due to pain. He was compliant with log rolling. For transfers, he required standby assist with extra time. He was using a front-wheeled walker. Balance required standby assist for standing activities. Endurance was fair to good. He was able to ambulate 12-100 feet with contact to standby assist and cues to maintain weightbearing status. Regarding stairs, he was able to negotiate 1 step with contact guard and cues for sequencing and safety with a front-wheeled walker. Regarding cognition, he was found to have a mild to moderate impairment in memory. IMPRESSION: This is a 26-year-old man who sustained a rock climbing fall of approximately 60 feet with significant vertebral compression fracture at C7, multiple thoracic spinous process fractures, ligamentous avulsion fractures from C5 to C7, a right posterior inferior acetabular fracture, pulmonary contusion, and multiple abrasions. Additionally, he had loss of consciousness at the scene, and is noted to have mild to moderate memory impairment. He also has pelvic fractures. He was stabilized in the hospital and did not require any surgery. The pain is remarkably well controlled without opiates, and he is appropriate for inpatient rehabilitation. He will benefit from physical and occupational therapies, and speech and language pathology regarding mobility, activities of daily living, and cognition. He will benefit from care of nurse regarding fall risk, bowel and bladder, skin integrity, healing of abrasions, and medication management. He will benefit from the care of physician regarding pain management with some attention to cardiac status, due to extra heart beats noted on exam and a murmur. His goal is to complete an inpatient rehabilitation stay and discharge home with outpatient services as is indicated, based on his functional status when he discharges. For a safe discharge, he will need to achieve independence with bed mobility and grooming; and modified assistance for transfers, dressing, bathing and ambulation with the least restrictive device. He may require assistance for household management and shopping, and it is hoped that his memory will either recover completely or he will learn use of strategies to compensate for any deficits. He will have therapy with Physical Therapy, Occupational Therapy, and Speech and Language Pathology for 60 minutes per day for each discipline on 5-7 days of the week. His expected duration of stay is 5-7 days. It is anticipated that upon discharge, he will continue to benefit from outpatient speech and language pathology. ASSESSMENT AND PLAN: 1. Multiple trauma, status post fall while rock-climbing. He did not require any surgery other than stapling of a laceration on the left posterior scalp. He has weightbearing limitation of 30 pounds on the right lower extremity due to acetabular fracture. Physical and occupational therapy to optimize mobility and activities of daily living. 2. Concussion with loss of consciousness at the scene and some memory impairment noted, to be assessed and treated per Speech and Language Pathology. 3. Pain control. Appears to be effective with acetaminophen. Hydromorphone has been all ordered as well, and cyclobenzaprine and ibuprofen. He will be observed for adequacy of pain management, and medications will be adjusted as needed. 4. Multiple abrasions. Bacitracin to be applied b.i.d., and continue dressings. Nursing to observe for any complications. 5. Heart murmur. An occasional extra heartbeat noted. Monitor for any other signs or symptoms of cardiovascular disease. 6. Prophylaxis. He is otherwise young and healthy. He does not have lower extremity fractures. He did not have lower extremity surgery, and his mobility is improving. There is no indication for DVT prophylaxis. Follow-up: Sharif Ho MD [Medical Doctor] - follow up in 2 weeks (follow up for pelvic fracture (left iliac creast, right acetabular)) Guanako Rasheed MD [Medical Doctor] - (Follow up in 6 weeks. Call office for order for neck x-ray prior to visit.) Dakota Peter MD [Medical Doctor] - (scalp staple removal after 10/18) /[id number]/MODL MTDD
[2016-10-17] MEDS: IBUPROFEN 200 MG TAB PO SCH ×2 (17:57→23:41)
[2016-10-17] MEDS ORDERED: BACITRACIN ZINC 14.2 GM OINTTUBE TP SCH (21:00)
[2016-10-17] MEDS: ACETAMINOPHEN 500 MG TAB PO SCH (21:09)
[2016-10-17] MEDS: BACITRACIN OINTMENT 1 PACKET TP SCH (21:20)
[2016-10-18] MEDS: ACETAMINOPHEN 500 MG TAB PO SCH ×3 (06:18→22:27)
[2016-10-18] MEDS: IBUPROFEN 200 MG TAB PO SCH ×3 (06:18→17:35)
[2016-10-18] MEDS: BACITRACIN OINTMENT 1 PACKET TP SCH (08:58)
--- NOTE | 2016-10-18 09:56 | SOAPPROG ---
SOAP Progress Note Assessment/Plan: Assessment: * Multiple trauma, status post fall while rock-climbing. He did not require any surgery other than stapling of a laceration left posterior scalp. He has weightbearing limitation of 30 pounds on the right lower extremity due to acetabular fracture. Physical and occupational therapy to optimize mobility and activities of daily living. * Concussion with loss of consciousness at the scene and some memory impairment noted, to be assessed and treated per Speech and Language Pathology. * Pain control. Appears to be effective with acetaminophen. Hydromorphone has been all ordered as well, and cyclobenzaprine and ibuprofen. He will be observed for adequacy of pain management, and medications will be adjusted as needed. * Multiple abrasions. Appreciate advice of wound nurse. Discontinue Bacitracin. Use wound gel. Cover wounds with of even. Change dressing every other day. * Scalp laceration. Healing well. Discontinue maximo 10/19/2016. * Heart murmur. An occasional extra heartbeat noted. Monitor for any other signs or symptoms of cardiovascular disease. * Prophylaxis. He is otherwise young and healthy. He does not have lower extremity fractures. He did not have lower extremity surgery, and his mobility is improving. There is no indication for DVT prophylaxis. Follow-up: Sharif Ho MD [Medical Doctor] - follow up in 2 weeks (follow up for pelvic fracture (left iliac creast, right acetabular)) Guanako Rasheed MD [Medical Doctor] - (Follow up in 6 weeks. Call office for order for neck x-ray prior to visit.) Dakota Peter MD [Medical Doctor] - (scalp staple removal after 10/18) 10/18/16 14:14 10/18/16 14:16 Subjective: No complaints this morning. 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 He declines the offer of additional pain medication. No fever, chills, cough, dyspnea. Objective: Vital Signs Temp Pulse Resp BP Pulse Ox 36.7 C 94 18 120/71 97 10/18/16 06:30 10/18/16 06:30 10/18/16 06:30 10/18/16 06:30 10/18/16 06:30 10/17/16 10/18/16 10/19/16 05:59 05:59 05:59 Intake Total 300 Balance 300 Physical Exam - Physical Exam General Appearance: WD/WN, alert, no apparent distress Respiratory: No respiratory distress, No accessory muscle use Skin: normal color, warm/dry, other (Stapled incision L posterior scalp C/D/I.) Neuro/Psych: no motor/sensory deficits, alert, normal mood/affect, oriented x 3 ICD10 Worksheet Patient Problems: Problems Problem Status Onset Compression fracture of cervical spine Acute Multiple fractures of thoracic spine Acute Pelvic fracture Acute Pulmonary contusion Acute
--- NOTE | 2016-10-18 14:18 | PDOREHIP ---
Admission [facility] - Admission - 3 Day Assessment Period Admission Date/Day 1: 10/17/16 Day 2: 10/18/16 Day 3: 10/19/16 - Active Diagnoses Comorbidities and Co-existing Conditions at Admission: 07940. None of the Above - Skin Conditions Unhealed Pressure Ulcer (1 or more/Stage 1 or >)-Admission: 0. No
[2016-10-19] MEDS: ACETAMINOPHEN 500 MG TAB PO SCH ×3 (07:02→22:20)
[2016-10-19] MEDS: IBUPROFEN 200 MG TAB PO SCH ×4 (07:02→17:59)
--- NOTE | 2016-10-19 10:07 | SOAPPROG ---
SOAP Progress Note Assessment/Plan: Assessment: 26-year-old male status post a rock climbing fall of approximately 60 feet with multiple traumatic injuries including a vertebral compression fracture at C7, multiple thoracic spinous fracture, ligamentous avulsion fractures from C5-C7, right posterior inferior acetabular fracture, pulmonary contusion, and multiple abrasions admitted to inpatient rehab with impairments in mobility and self-care , as well as possibly cognition related to a mild traumatic brain injury. Today's update: Patient very interested in going home, he notes that his father will be in town for the weekend and can help him with activities at home. This is the 1st time meeting the patient, all medical issues are new to this provider. A total of 35 minutes was spent on the floor in the care of the patient, the majority of which was spent counseling and coordination of care regarding returning to daily activities and work after trauma including brain injury. Mild numbness at the fingertips on the left arm may be due to injury to a nerve roots at the neck, or may be related to injury to the ulnar nerve at the elbow where he also has lacerations. Regardless, he does not have any weakness in the hand and it is appropriate to monitor for any changes. If worsening, I would consider imaging of the neck to ensure that he is stable. I also counseled him that any return to work should take place on a gradual basis so as to avoid being overwhelmed by cognitive demands. Mild chest pain on deep inspiration likely related to pulmonary contusion on the left. * Multiple trauma, status post fall while rock-climbing. He did not require any surgery other than stapling of a laceration left posterior scalp. He has weightbearing limitation of 30 pounds on the right lower extremity due to acetabular fracture. Physical and occupational therapy to optimize mobility and activities of daily living. * Concussion/mild traumatic brain injury with loss of consciousness at the scene and some memory impairment noted, to be assessed and treated per Speech and Language Pathology. * Pain control. Appears to be effective with acetaminophen. Hydromorphone has been all ordered as well, and cyclobenzaprine and ibuprofen. He will be observed for adequacy of pain management, and medications will be adjusted as needed. * Multiple abrasions. Appreciate advice of wound nurse. Discontinue Bacitracin. Use wound gel. Cover wounds with of even. Change dressing every other day. * Scalp laceration. Healing well. Discontinue maximo 10/19/2016. * Heart murmur. An occasional extra heartbeat noted. Monitor for any other signs or symptoms of cardiovascular disease. * Prophylaxis. He is otherwise young and healthy. He does not have lower extremity fractures. He did not have lower extremity surgery, and his mobility is improving. There is no indication for DVT prophylaxis. * Mild numbness of the left hand: Possibly related to cervical spine or contusion to the ulnar nerve at the elbow. Continue to monitor, he says it has been stable for a few days as of 10/19/2016. Monitor * Chest pain on deep inspiration: Likely related to his pulmonary contusion on the left. Monitor * Discharge planning: Patient endorses that he would like to go home by this weekend as his father's coming into town and may be able to help him. Discussed with the patient that we would want the evaluation from all the therapist, and we would typically discuss it tomorrow. If possible, we will work toward to discharge on Sunday evening. Follow-up: Sharif Ho MD [Medical Doctor] - follow up in 2 weeks (follow up for pelvic fracture (left iliac creast, right acetabular)) Guanako Rasheed MD [Medical Doctor] - (Follow up in 6 weeks. Call office for order for neck x-ray prior to visit.) Dakota Peter MD [Medical Doctor] - (scalp staple removal after 10/18) 10/19/16 09:58 10/19/16 10:11 Subjective: Chief complaint: Left hand numbness No acute events overnight. Patient is participating in therapies, feels that things are going well. He is very interested in going home as soon as possible. He endorses no cognitive problems, but does endorse some numbness of his left hand that he noticed a few days ago. He says it has been stable, mostly located in the distal part of his little finger and ring finger. He notes it very subtly in the other fingers. He denies any numbness of the arm, and he does have significant lacerations about his left elbow. He has not had any prior history of problems with his hand. He denies any weakness with the hand. Otherwise he denies any chest pain or shortness of breath, or any other new numbness, tingling, or weakness. No new neck pain. He is interested in going home as soon as possible, he notes that his father will be in town on Sunday and may be able to assist him. He works as a physicist in climate research. He also noted some mild chest pain on deep inspiration on the left side, resolved with medications and rest. This is the location of pulmonary contusion on imaging. Objective: Vital Signs Temp Pulse Resp BP Pulse Ox 36.8 C 81 16 121/84 H 97 10/19/16 08:00 10/19/16 08:00 10/19/16 08:00 10/19/16 08:00 10/19/16 08:00 10/18/16 10/19/16 10/20/16 05:59 05:59 05:59 Intake Total 300 1486 Balance 300 1486 Physical Exam - Physical Exam General Appearance: WD/WN, alert, no apparent distress EENT: No scleral icterus (R), No scleral icterus (L) Neck: other (Cervical collar in place) Respiratory: chest non-tender, lungs clear, normal breath sounds, No respiratory distress, No accessory muscle use, No decreased breath sounds, No rales, No rhonchi, No wheezing, No splinting Cardiac/Chest: normal peripheral pulses, regular rate, rhythm, No edema Skin: normal color, warm/dry, other (Lacerations about his left elbow, skin abrasions.), No cyanosis Extremities: non-tender, No pedal edema, No swelling Neuro/Psych: alert, normal mood/affect, sensory deficit (Decreased sensation in the left-sided ring finger and little finger compared to the right, mild decrease in sensation in the index finger and middle finger.), No motor weakness (Strength is full in bilateral finger abductors and finger flexors) ICD10 Worksheet Patient Problems: Problems Problem Status Onset Compression fracture of cervical spine Acute Multiple fractures of thoracic spine Acute Pelvic fracture Acute Pulmonary contusion Acute
--- NOTE | 2016-10-19 11:46 | PDOREHIP ---
Admission [facility] - Admission - 3 Day Assessment Period Admission Date/Day 1: 10/17/16 Day 2: 10/18/16 Day 3: 10/19/16 Discharge [facility] - Discharge - 3 Day Assessment Period 2 Days Prior to Anticipated Discharge Date: 10/18/16 1 Day Prior to Anticipated Discharge Date: 10/19/16 Anticipated Discharge Date: 10/20/16 - Discharge Skin Conditions Unhealed Pressure Ulcer (1 or more/Stage 1 or >)-Discharge: 0. No
[2016-10-20] MEDS: ACETAMINOPHEN 500 MG TAB PO SCH ×2 (07:14→15:28)
[2016-10-20] MEDS: IBUPROFEN 200 MG TAB PO SCH ×3 (07:16→13:04)
--- NOTE | 2016-10-20 13:16 | SOAPPROG ---
SOAP Progress Note Assessment/Plan: Assessment: * Multiple trauma, status post fall while rock-climbing. He did not require any surgery other than stapling of a laceration left posterior scalp. He has weightbearing limitation of 30 pounds on the right lower extremity due to acetabular fracture. Functional independence measure 104 on 10/20/2016. Independent in the room and on the unit with front wheeled walker. Physical and occupational therapy to optimize mobility and activities of daily living. * Concussion with loss of consciousness at the scene. No cognitive impairment on extensive testing per Speech and Language Pathology. * Pain control. Appears to be effective with acetaminophen and ibuprofen. * Multiple abrasions. Appreciate advice of wound nurse. Discontinue Bacitracin. Use wound gel. Cover wounds with Allevyn. Change dressing every other day. * Scalp laceration. Healing well. Discontinue maximo 10/19/2016. * Heart murmur. An occasional extra heartbeat noted. Monitor for any other signs or symptoms of cardiovascular disease. * Prophylaxis. He is otherwise young and healthy. He does not have lower extremity fractures. He did not have lower extremity surgery, and his mobility is improving. There is no indication for DVT prophylaxis. Attended staffing, 15 minutes. Discussed with case management, pharmacy, dietitian, PT, OT, BUSINESS SERVICES ADMINISTRATOR. Discharging home today with 2 roommates. His father is arriving from [facility] to provide assistance as well. Will have a nurse visit at home for education around dressing changes and assessment of abrasions. Follow-up: Sharif Ho MD [Medical Doctor] - follow up in 2 weeks (follow up for pelvic fracture (left iliac creast, right acetabular)) Guanako Rasheed MD [Medical Doctor] - (Follow up in 6 weeks. Call office for order for neck x-ray prior to visit.) 10/20/16 13:14 Subjective: No complaints. Ready to go home. Denies pain, cough, dyspnea, fevers, chills. Objective: Vital Signs Temp Pulse Resp BP Pulse Ox 36.6 C 78 16 136/72 H 97 10/19/16 20:00 10/19/16 20:00 10/19/16 20:00 10/19/16 20:00 10/19/16 20:00 10/19/16 10/20/16 10/21/16 05:59 05:59 05:59 Intake Total 1486 1060 Balance 1486 1060 - Time Spent With Patient Time Spent With Patient: Greater than 35 minutes floor time today, including more than 50% of time in coordination of care during staffing meeting, and counseling patient. Physical Exam - Physical Exam General Appearance: WD/WN, alert, no apparent distress Respiratory: No respiratory distress, No accessory muscle use Cardiac/Chest: No edema Skin: normal color, warm/dry, other (Multiple abrasions dressed with Allevyn.) Neuro/Psych: no motor/sensory deficits, alert, normal mood/affect, oriented x 3 , other (Ambulates with a front wheeled walker, compliant with 30 lb weight- bearing limitation on her right lower extremity.) ICD10 Worksheet Patient Problems: Problems Problem Status Onset Compression fracture of cervical spine Acute Multiple fractures of thoracic spine Acute Pelvic fracture Acute Pulmonary contusion Acute
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
[2016-10-20 17:59] VITALS: BP 131/80; PULSE 80; RESP 18; TEMP 98.2; O2SAT 99
== END 2016-10-20 17:10 | disposition home or self-care (01) | DRG 946 ==
LOC: BREH 13:50
PROVIDERS: ADMIT Internal Medicine; ATTEND Internal Medicine
PROC: F07M3ZZ Motor Function Treatment of Musculoskeletal System - Whole Body (ICD-10-PCS; principal; 2016-10-17)
PROC: F08Z7ZZ Vocational Activities and Functional Community or Work Reintegration Skills Treatment (ICD-10-PCS; principal; 2016-10-17)
PROC: F0636ZZ Communicative/Cognitive Integration Skills Treatment of Neurological System - Whole Body (ICD-10-PCS; principal; 2016-10-17)
DX: S06.0X9D Concussion with loss of consciousness of unspecified duration, subsequent encounter (principal); S12.690D Other displaced fracture of seventh cervical vertebra, subsequent encounter for fracture with routine healing; S22.009D Unspecified fracture of unspecified thoracic vertebra, subsequent encounter for fracture with routine healing; S12.490D Other displaced fracture of fifth cervical vertebra, subsequent encounter for fracture with routine healing; S12.590D Other displaced fracture of sixth cervical vertebra, subsequent encounter for fracture with routine healing; S32.421D Displaced fracture of posterior wall of right acetabulum, subsequent encounter for fracture with routine healing; S27.329D Contusion of lung, unspecified, subsequent encounter; S32.89XD Fracture of other parts of pelvis, subsequent encounter for fracture with routine healing; W17.81XD Fall down embankment (hill), subsequent encounter; Y93.31 Activity, mountain climbing, rock climbing and wall climbing; S01.01XD Laceration without foreign body of scalp, subsequent encounter; R01.1 Cardiac murmur, unspecified
CPT/HCPCS: 92507-GN; 92522-GN; 97110-GP; 97116-GP; 97161-GP; 97165-GO; 97530-GO; 97530-GP; 97535-GO

== ENCOUNTER 2016-11-01 17:19 | Emergency (ER) | payer OTHER ==
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
[2016-11-01] MEDS ORDERED: RIVAROXABAN 15 MG TAB PO ONE (19:58)
[2016-11-01 20:56] VITALS: BP 102/75; PULSE 80; RESP 18; TEMP 98.1; O2SAT 95
== END 2016-11-01 20:59 | disposition home or self-care (01) ==
DX: I82.432 Acute embolism and thrombosis of left popliteal vein (principal)